=== PATIENT | female | born 1975 | race Caucasian/White ===

== ENCOUNTER 2018-11-26 23:03 | Emergency (ER) | payer BC, OTHER ==
--- NOTE | 2018-11-26 23:27 | ED ---
Abdominal Pain/Female - HPI Summary HPI Summary: 43 year old F presenting to [facility] accompanied by female cousin with a chief complaint of constant abdominal pain radiating to her back at 02:00 today. The patient rates the pain 7/10 in severity. Symptoms aggravated by lying down. Symptoms alleviated by nothing. Patient denies vomiting and diarrhea. She denies fever, lightheadedness, dizziness. Patient takes Coumadin and aspirin. Patient has had her gallbladder removed. Patient has a hiatal hernia. - History of Current Complaint Chief Complaint: EDAbdPain Stated Complaint: ABD PAIN PER PT Time Seen by Provider: 11/26/18 23:18 Hx Obtained From: Patient Onset/Duration: Lasting Hours - 21, Still Present Timing: Constant Severity Currently: Moderate Pain Intensity: 7 Pain Scale Used: 0-10 Numeric Location: Diffuse Radiates: Yes Radiates to: Back Aggravating Factor(s): Other: - lying down Alleviating Factor(s): Nothing Associated Signs and Symptoms: Positive: Negative - vomiting and diarrhea, fever , lightheadedness, dizziness Allergies/Adverse Reactions: Allergies Allergy/AdvReac Type Severity Reaction Status Date / Time erythromycin base Allergy GI Upset Verified 11/26/18 23:07 Sulfa (Sulfonamide Allergy Anaphylatic Verified 11/26/18 23:07 Antibiotics) Shock Home Medications: Home Medications Aspirin 81 mg CHEW TAB* 81 mg PO DAILY 11/26/18 [History Confirmed 11/26/18] Warfarin TAB(*) [Coumadin TAB(*)] 3 mg PO DAILY 11/26/18 [History Confirmed ] PMH/Surg Hx/FS Hx/Imm Hx Previously Healthy: No Cardiovascular History: Reports: Other Cardiovascular Problems/Disorders - endocarditis GI History: Reports: Hx Hiatal Hernia - Surgical History Surgery Procedure, Year, and Place: aortic valve replacement. gallbladder Infectious Disease History: Yes Infectious Disease History: Denies: Traveled Outside the [place] in Last 30 Days - Family History Known Family History: Negative: Blood Disorder - Social History Alcohol Use: Occasionally Hx Substance Use: No Substance Use Type: Reports: None Hx Tobacco Use: Yes Smoking Status (MU): Former Smoker Type: Cigarettes Review of Systems Negative: Fever Positive: Abdominal Pain. Negative: Vomiting, Diarrhea Neurological: Negative - lightheadedness, dizziness All Other Systems Reviewed And Are Negative: Yes Physical Exam - Summary Physical Exam Summary: VITAL SIGNS: Reviewed. GENERAL: Patient is a well-developed and nourished FEMALE who is lying comfortable in the stretcher. Patient is not in any acute respiratory distress. HEAD AND FACE: No signs of trauma. No ecchymosis, hematomas or skull depressions. No sinus tenderness. EYES: PERRLA, EOMI x 2, No injected conjunctiva, no nystagmus. EARS: Hearing grossly intact. Ear canals and tympanic membranes are within normal limits. MOUTH: Oropharynx within normal limits. NECK: Supple, trachea is midline, no adenopathy, no JVD, no carotid bruit, no c- spine tenderness, neck with full ROM CHEST: Symmetric, no tenderness at palpation LUNGS: Clear to auscultation bilaterally. No wheezing or crackles. CVS: Regular rate and rhythm, S1 and S2 present, no murmurs or gallops appreciated. ABDOMEN: RUQ tenderness and epigastric tenderness EXTREMITIES: FROM in all major joints, no edema, no cyanosis or clubbing. NEURO: Alert and oriented x 3. No acute neurological deficits. Speech is normal and follows commands. SKIN: Dry and warm Triage Information Reviewed: Yes Vital Signs On Initial Exam: Initial Vitals Temp Pulse Resp BP Pulse Ox 98 F 97 20 143/97 95 11/26/18 23:06 11/26/18 23:06 11/26/18 23:06 11/26/18 23:06 11/26/18 23:06 Vital Signs Reviewed: Yes Diagnostics - Vital Signs Vital Signs Temp Pulse Resp BP Pulse Ox 11/26/18 23:06 98 F 97 20 143/97 95 - Laboratory Result Diagrams: 11/26/18 23:44 11/26/18 23:44 Lab Statement: Any lab studies that have been ordered have been reviewed, and results considered in the medical decision making process. - CT Abd/Pel CT Interpretation Completed By: Radiologist Summary of CT Findings: Mild mucosal thickening of the distal stomach and proximal small bowel, associated with mild surrounding fat stranding extending to the proximal pancreas which may represent gastroenteritis with or without focal pancreatitis. ED physician has reviewed this report. Re-Evaluation - Re-Evaluation First Eval Re-Evaluation Time: 02:07 Comment: Patient was given an update on her CT Abd/Pel results Abdominal Pain Fem Course/Dx - Course Course Of Treatment: 43 year old F presenting to [facility] accompanied by female cousin with a chief complaint of constant abdominal pain radiating to her back at 02:00 today. Physical exam findings: RUQ and epigastric tenderness. CT Abd/ Pel reveals, per radiologist, Mild mucosal thickening of the distal stomach and proximal small bowel, associated with mild surrounding fat stranding extending to the proximal pancreas which may represent gastroenteritis with or without focal pancreatitis. Test results with no significant abnormalities except for WBC 17.6, RBC 5.02, MCH 32, absolute neuts 12.1, absolute monos 1.1, INR 2.93, APTT 65.5, glucose 142, total bilirubin 1.40, alkaline phosphatase 110, and c- reactive protein 20.24. Urinanalysis is unremarkable. In the ED course, the patient was given IV fluids, Maalox, lidocaine, Reglan, morphine, and Protonix. Patient feels better and would like to go home. Patient will be discharged home with prescription for Augmentin, Percocet, and Protonix and follow up from primary care provider in 3 days. Patient was instructed to return to ED for new or worsening symptoms. Patient understands and is agreeable to discharge plan. - Diagnoses Provider Diagnoses: Gastroenteritis Discharge - Sign-Out/Discharge Documenting (check all that apply): Patient Departure - Discharge Patient Received Moderate/Deep Sedation with Procedure: No - Discharge Plan Condition: Stable Disposition: HOME Prescriptions: Amoxicillin/Clavulanate TAB* [Augmentin TAB 875*] 875 mg PO BID #14 tab oxyCODONE/Acetamin 5/325 MG* [Percocet 5/325 TAB*] 1 tab PO Q6H PRN #10 tab MDD 4 PRN Reason: Pain Pantoprazole TAB * [Protonix TAB*] 40 mg PO DAILY #14 tab Patient Education Materials: Gastroenteritis (ED) Referrals: [facility] [place] [facility] REFERRAL [Outside] - 3 Days Additional Instructions: Follow up with your primary care provider in 3 days. PLEASE RETURN TO THE EMERGENCY DEPARTMENT IMMEDIATELY FOR WORSENING OR CONCERNING SYMPTOMS. - Billing Disposition and Condition Condition: STABLE Disposition: Home - Attestation Statements Document Initiated by Scribe: Yes Documenting Scribe: Lori Ortega Provider For Whom Scribe is Documenting (Include Credential): Jonatan Beavers MD Scribe Attestation: Lori Maldonado, scribed for Jonatan Beavers MD on 11/27/18 at 0304. Scribe Documentation Reviewed: Yes Provider Attestation: The documentation as recorded by the scribe, Lori Ortega accurately reflects the service I personally performed and the decisions made by me, Jontaan Beavers MD Status of Scribe Document: Viewed
[2018-11-26 23:50] LABS: ABS Basophils 0.1 10^3/ul (0-0.2); ABS Eosinophils 0.2 10^3/ul (0-0.6); ABS Monocytes 1.1 10^3/ul (0-0.8); ABS Neutrophils 12.1 10^3/ul (1.5-7.7); Eosinophil % 1.2 %; Hematocrit 46 % (35-47); Hemoglobin 15.8 g/dL (12.0-16.0); Lymphocyte % 22.8 %; Mean Corpuscular HGB Conc 35 g/dL (31-36); Mean Corpuscular Hemoglobin 32 pg (27-31); Mean Corpuscular Volume 91 fL (80-97); Mean Platelet Volume 7.4 fL (7.4-10.4); Platelet Count 296 10^3/uL (150-450); Red Blood Count 5.02 10^6 /uL (3.70-4.87); Red Cell Distribution Width 14 % (10-15); White Blood Count 17.6 10^3/uL (3.5-10.8)
[2018-11-27] LABS: Activated Partial Thrombo Time 65.5 seconds (26.0-38.0); INR 2.93 (0.82-1.09)
[2018-11-27] MEDS: Morphine 4 MG/ML VIAL (1 ml) 4 MG/ML VIAL IV ONE ×2 (00:02→02:07)
[2018-11-27] MEDS: NS 0.9% 1000 ML** 1,000 ML IV ONE (00:02)
[2018-11-27] MEDS: Metoclopramide IV* 5 MG/ML 2 ML VIAL IV SLOW PU ONE (00:02)
[2018-11-27] MEDS: Pantoprazole IV* 40 MG IV ONE (00:02)
[2018-11-27] MEDS: Lidocaine 2% VISCOUS* 15 ML UDC PO ONE (00:04)
[2018-11-27] MEDS: Al Hydrox/Mg Hydrox/Simet LIQ* 30 ML UDC PO ONE (00:04)
[2018-11-27 00:11] LABS: Albumin 4.1 g/dL (3.2-5.2); Albumin/Globulin Ratio 1.2 (1-3); BUN/Creatinine Ratio 11.5 (8-20); C Reactive Protein 20.24 mg/L (<8.01); Calcium 9.6 mg/dL (8.6-10.3); EGFR African American 86.8 (>60); EGFR Non-African American 71.8 (>60); Globulin 3.5 g/dL (2-4); Magnesium 1.9 mg/dL (1.9-2.7); Potassium 3.9 mmol/L (3.5-5.0); Total Bilirubin 1.4 mg/dL (0.2-1.0); Total Protein 7.6 g/dL (6.4-8.9)
[2018-11-27] MEDS: Iohexol 300* (CONTRAST) 10 ML SDV IV ONE (00:38)
[2018-11-27 01:09] LABS: Urine Appearance Cloudy; Urine Bilirubin Negative (Negative); Urine Blood Negative (Negative); Urine Color Yellow; Urine Glucose Negative (Negative); Urine Ketones Negative (Negative); Urine Nitrite Negative (Negative); Urine Protein Negative (Negative); Urine Specific Gravity 1.016 (1.010-1.030); Urine Urobilinogen Negative (Negative)
[2018-11-27] MEDS: Amoxicillin/Clavulanate TAB* 875 MG PO ONE (02:13)
[2018-11-27 02:29] VITALS: BP 131/79
== END 2018-11-27 02:28 | disposition home or self-care (01) ==
LOC: ED 23:03
DX: K52.9 Noninfective gastroenteritis and colitis, unspecified (principal); Z95.2 Presence of prosthetic heart valve; Z87.891 Personal history of nicotine dependence; Z79.82 Long term (current) use of aspirin; Z79.01 Long term (current) use of anticoagulants
CPT/HCPCS: 36415; 74177; 80053; 81003; 83605; 83690; 83735; 85025; 85610; 85730; 86140; 96361; 96365; 96366; 96375; 99283; A9270-GY; J2270; J2765; Q9967

== ENCOUNTER 2019-01-21 08:06 | Emergency (ER) | payer OTHER ==
[2019-01-21 09:20] LABS: ABS Basophils 0.1 10^3/ul (0-0.2); ABS Eosinophils 0.2 10^3/ul (0-0.6); ABS Lymphocytes 2.5 10^3/ul (1.0-4.8); ABS Monocytes 0.7 10^3/ul (0-0.8); Eosinophil % 2.5 %; Hematocrit 47 % (35-47); Hemoglobin 15.9 g/dL (12.0-16.0); Lymphocyte % 26.6 %; Mean Corpuscular HGB Conc 34 g/dL (31-36); Mean Corpuscular Hemoglobin 32 pg (27-31); Mean Corpuscular Volume 93 fL (80-97); Mean Platelet Volume 7.4 fL (7.4-10.4); Nucleated Red Blood Cells % 0.1; Platelet Count 312 10^3/uL (150-450); Red Blood Count 4.99 10^6 /uL (3.70-4.87); Red Cell Distribution Width 14 % (10-15); White Blood Count 9.5 10^3/uL (3.5-10.8)
[2019-01-21] MEDS ORDERED: Clindamycin 600 MG/D5W BAG(*) 600 MG/50 ML BAG IV ONE (09:31)
[2019-01-21 09:38] LABS: Albumin 4.2 g/dL (3.2-5.2); Albumin/Globulin Ratio 1.4 (1-3); BUN/Creatinine Ratio 12.2 (8-20); Calcium 9.2 mg/dL (8.6-10.3); EGFR African American 92.5 (>60); EGFR Non-African American 76.5 (>60); Potassium 4.2 mmol/L (3.5-5.0); Total Bilirubin 1.1 mg/dL (0.2-1.0); Total Protein 7.2 g/dL (6.4-8.9)
--- NOTE | 2019-01-21 10:10 | ED ---
Skin Complaint - HPI Summary HPI Summary: 44 year old female presents with rash on left leg for the past week. She states that she initially scraped her leg. She has that she has a history of endocarditis is worried that she is getting become septic. She is on warfarin. She has had fevers and chills. She denies any fatigue. No drainage from the area. - History of Current Complaint Chief Complaint: EDExtremityLower Time Seen by Provider: 01/21/19 08:48 Stated Complaint: INFECTION IN LEFT LEG PER PT Pain Intensity: 6 - Allergy/Home Medications Allergies/Adverse Reactions: Allergies Allergy/AdvReac Type Severity Reaction Status Date / Time erythromycin base Allergy GI Upset Verified 11/26/18 23:07 Sulfa (Sulfonamide Allergy Anaphylatic Verified 11/26/18 23:07 Antibiotics) Shock PMH/Surg Hx/FS Hx/Imm Hx Endocrine/Hematology History: Denies: Hx Diabetes Cardiovascular History: Reports: Other Cardiovascular Problems/Disorders - endocarditis Denies: Hx Hypertension GI History: Reports: Hx Hiatal Hernia History: Denies: Hx Renal Disease - Surgical History Surgery Procedure, Year, and Place: aortic valve replacement. gallbladder Infectious Disease History: Yes Infectious Disease History: Denies: Traveled Outside the [place] in Last 30 Days - Family History Known Family History: Negative: Blood Disorder - Social History Alcohol Use: Occasionally Hx Substance Use: No Substance Use Type: Reports: None Hx Tobacco Use: Yes Smoking Status (MU): Former Smoker Type: Cigarettes Review of Systems Negative: Fever Negative: Chest Pain Negative: Shortness Of Breath Positive: Rash All Other Systems Reviewed And Are Negative: Yes Physical Exam Triage Information Reviewed: Yes Vital Signs On Initial Exam: Initial Vitals Temp Pulse Resp BP Pulse Ox 97.3 F 89 18 123/94 96 01/21/19 08:07 01/21/19 08:07 01/21/19 08:07 01/21/19 08:07 01/21/19 08:07 Vital Signs Reviewed: Yes Appearance: Positive: Well-Appearing Skin: Positive: Warm, Dry, Other - erythema to left leg 6cm by 4cm that is warm to touch Head/Face: Positive: Normal Head/Face Inspection Eyes: Positive: Normal, Conjunctiva Clear ENT: Positive: Pharynx normal Respiratory/Lung Sounds: Positive: Clear to Auscultation, Breath Sounds Present Cardiovascular: Positive: Normal, RRR Musculoskeletal: Positive: Normal Neurological: Positive: Normal Psychiatric: Positive: Normal Diagnostics - Vital Signs Vital Signs Temp Pulse Resp BP Pulse Ox 01/21/19 08:07 97.3 F 89 18 123/94 96 - Laboratory Lab Results: Lab Results 01/21/19 01/21/19 Range/Units 09:10 09:10 WBC 9.5 (3.5-10.8) 10^3/uL RBC 4.99 H (3.70-4.87) 10^6 /uL Hgb 15.9 (12.0-16.0) g/dL Hct 47 (35-47) % MCV 93 (80-97) fL MCH 32 H (27-31) pg MCHC 34 (31-36) g/dL RDW 14 (10-15) % Plt Count 312 (150-450) 10^3/uL MPV 7.4 (7.4-10.4) fL Neut % (Auto) 62.9 % Lymph % (Auto) 26.6 % Brooks % (Auto) 7.0 % Eos % (Auto) 2.5 % Baso % (Auto) 1.0 % Absolute Neuts (auto) 6.0 (1.5-7.7) 10^3/ul Absolute Lymphs (auto) 2.5 (1.0-4.8) 10^3/ul Absolute Monos (auto) 0.7 (0-0.8) 10^3/ul Absolute Eos (auto) 0.2 (0-0.6) 10^3/ul Absolute Basos (auto) 0.1 (0-0.2) 10^3/ul Absolute Nucleated RBC 0.0 10^3/ul Nucleated RBC % 0.1 Sodium 135 (135-145) mmol/L Potassium 4.2 (3.5-5.0) mmol/L Chloride 108 (101-111) mmol/L Carbon Dioxide 20 L (22-32) mmol/L Anion Gap 7 (2-11) mmol/L BUN 10 (6-24) mg/dL Creatinine 0.82 (0.51-0.95) mg/dL Est GFR ( Amer) 92.5 (>60) Est GFR (Non-Af Amer) 76.5 (>60) BUN/Creatinine Ratio 12.2 (8-20) Glucose 119 H (70-100) mg/dL Calcium 9.2 (8.6-10.3) mg/dL Total Bilirubin 1.10 H (0.2-1.0) mg/dL AST 29 (13-39) U/L ALT 26 (7-52) U/L Alkaline Phosphatase 113 H (34-104) U/L Total Protein 7.2 (6.4-8.9) g/dL Albumin 4.2 (3.2-5.2) g/dL Globulin 3.0 (2-4) g/dL Albumin/Globulin Ratio 1.4 (1-3) Result Diagrams: 01/21/19 09:10 01/21/19 09:10 Lab Statement: Any lab studies that have been ordered have been reviewed, and results considered in the medical decision making process. Course/Dx - Course Course Of Treatment: 44 year old female presents with rash on left leg for the past week. She states that she initially scraped her leg. She has that she has a history of endocarditis is worried that she is getting become septic. She is on warfarin. She has had fevers and chills. She denies any fatigue. No drainage from the area. On exam has 6cm by 4 cm area of erythema on left leg. White blood cell count normal. gave does IV Clinda. He is afebrile here. will prescribe oral Clinda. Told that does not improve in 2 days return. Patient understands agrees with plan. - Differential Diagnoses - Skin Complaint Differential Diagnoses: Abscess, Cellulitis, Contact Dermatitis - Diagnoses Provider Diagnoses: Cellulitis Discharge - Sign-Out/Discharge Documenting (check all that apply): Patient Departure Patient Received Moderate/Deep Sedation with Procedure: No - Discharge Plan Condition: Good Disposition: HOME Prescriptions: Clindamycin Cap(NF) [Clindamycin Cap 300 mg Cap(NF)] 300 mg PO TID #29 cap Patient Education Materials: Cellulitis (ED) Referrals: Graham Lomeli DO [Primary Care Provider] - Additional Instructions: Take clindamycin three times a day for 10 days, first dose given in ED Elevate extremity Take Tylenol every 6 hours for pain or fever Follow up with primary within 3 days Return to ED if redness spreads after two days on antibiotics or any new or worsening symptoms - Billing Disposition and Condition Condition: GOOD Disposition: Home - Attestation Statements Provider Attestation: I was available for consult. This patient was seen by the SHERICE. The patient was not presented to, seen by, or examined by me. -Linsey
[2019-01-21] MEDS ORDERED: Clindamycin 600 MG IVPREMIX(* 600 MG/50 ML SDV IV ONE (11:00)
[2019-01-21 11:06] VITALS: BP 138/86
== END 2019-01-21 11:05 | disposition home or self-care (01) ==
LOC: ED 08:06
DX: L03.116 Cellulitis of left lower limb (principal); I38 Endocarditis, valve unspecified; Z88.1 Allergy status to other antibiotic agents; Z88.2 Allergy status to sulfonamides; Z79.01 Long term (current) use of anticoagulants; Z95.2 Presence of prosthetic heart valve; Z87.891 Personal history of nicotine dependence
CPT/HCPCS: 36415; 80053; 85025; 87040; 96365; 99282

== ENCOUNTER 2020-11-22 11:27 | Inpatient (IN) ==
[2020-11-22] MEDS ORDERED: NS 0.9% 1000 ml BAG 1,000 ML IV ONE (11:36)
[2020-11-22 11:55] LABS: ABS Basophils 0.1 10^3/ul (0-0.2); ABS Eosinophils 0.3 10^3/ul (0-0.6); ABS Monocytes 0.7 10^3/ul (0-0.8); ABS Neutrophils 5.6 10^3/ul (1.5-7.7); Hematocrit 45 % (35-47); Hemoglobin 15.4 g/dL (12.0-16.0); Lymphocyte % 23.6 %; Mean Corpuscular HGB Conc 35 g/dL (31-36); Mean Corpuscular Hemoglobin 32 pg (27-31); Mean Corpuscular Volume 93 fL (80-97); Mean Platelet Volume 7.4 fL (7.4-10.4); Platelet Count 289 10^3/uL (150-450); Red Blood Count 4.81 10^6 /uL (3.70-4.87); Red Cell Distribution Width 14 % (10-15); White Blood Count 8.6 10^3/uL (3.5-10.8)
[2020-11-22 12:10] LABS: Albumin 3.5 g/dL (3.2-5.2); Calcium 8.1 mg/dL (8.6-10.3); Potassium 4.4 mmol/L (3.5-5.0); Total Bilirubin 0.9 mg/dL (0.2-1.0)
[2020-11-22 12:13] LABS: Activated Partial Thrombo Time 65.6 seconds (26.0-38.0); INR 4.74 (0.82-1.09)
[2020-11-22 12:17] LABS: Albumin/Globulin Ratio 1.3 (1-3); EGFR Non-African American 84.3 (>60); Globulin 2.8 g/dL (2-4); HDL Cholesterol 30.9 mg/dL; Total Protein 6.3 g/dL (6.4-8.9)
[2020-11-22] MEDS ORDERED: Nicotine Lozenge mini 2 MG LOZNG.MINI MT PRN (13:59)
[2020-11-22] MEDS ORDERED: Albuterol HFA INHALER 8 gm MDI INH PRN (14:17)
[2020-11-22] MEDS ORDERED: Warfarin per PHARMACY **NOTE FOLLOW UP SCH (15:00)
[2020-11-22 15:28] LABS: C Reactive Protein 4.01 mg/L (<8.01)
[2020-11-22 18:01] LABS: Erythrocyte Sed Rate 4 mm/Hr (0-19)
[2020-11-22 18:59] LABS: Urine Appearance Clear; Urine Bilirubin Negative (Negative); Urine Blood Negative (Negative); Urine Color Yellow; Urine Glucose Negative (Negative); Urine Ketones Negative (Negative); Urine Nitrite Negative (Negative); Urine Protein Negative (Negative); Urine Specific Gravity 1.025 (1.002-1.030); Urine Urobilinogen Negative (Negative)
[2020-11-22] MEDS ORDERED: Lidocaine Patch REMOVE PATCH PATCH OFF SCH (21:00)
[2020-11-23 06:40] LABS: INR 4.53 (0.82-1.09)
[2020-11-23] MEDS ORDERED: Lidocaine PATCH 5% PATCH TRANSDERM SCH (09:00)
[2020-11-23] MEDS ORDERED: Nicotine PATCH 14 MG/24 HR PATCH TRANSDERM SCH (09:00)
[2020-11-23 15:50] VITALS: BP 125/60
[2020-11-23] MEDS ORDERED: Warfarin DAILY REMINDER **NOTE FOLLOW UP SCH (17:00)
== END 2020-11-23 17:38 | disposition home health service (06) | DRG 65 ==
LOC: ED 11:27 → MEDTELE 13:14
PROVIDERS: ADMIT Internal Medicine; ATTEND Pediatrics